=== PATIENT | male | born 1960 | race Caucasian/White ===

== ENCOUNTER 2021-03-21 05:02 | Day surgery (SDC) | payer BC ==
[~2021-03-21] VITALS: Ht 185.4 cm; Wt 89.4 kg
[2021-03-21 06:01] LABS: BASOPHILS % 0.3 % (0.0-1.0); EOSINOPHILS # (AUTO) 0.2 (0.0-0.4); EOSINOPHILS % 3.3 % (0.0-6.0); HEMOGLOBIN 15.8 g/dL (14.0-18.0); LYMPHOCYTES # (AUTO) 1.1 (1.0-3.2); LYMPHOCYTES % 16.9 % (18.0-39.1); MEAN CORPUSCULAR HEMOGLOBIN 29.9 pg (28-32); MEAN CORPUSCULAR HGB CONC 34.3 g/dL (31-35); MONOCYTES # (AUTO) 0.6 (0.2-0.8); MONOCYTES % 8.7 % (4.4-11.3); NEUTROPHILS # (AUTO) 4.4 (2.1-6.9); NEUTROPHILS % 70.6 % (38.7-80.0); PLATELET COUNT 140 x10e3/uL (140-360); RED BLOOD COUNT 5.29 x10e6/uL (4.3-5.7); RED CELL DISTRIBUTION WIDTH 11.9 % (11.7-14.4)
[2021-03-21 06:11] LABS: INR 0.95; PARTIAL THROMBOPLASTIN TIME 24.7 seconds (23.8-35.5); PROTHROMBIN TIME 13.1 seconds (11.9-14.5)
[2021-03-21 06:12] LABS: CLARITY,URINE HAZY (CLEAR); COLOR,URINE YELLOW (YELLOW); KETONES,URINE TRACE (NEGATIVE); LEUKOCYTE ESTERASE ,URINE NEGATIVE (NEGATIVE); NITRITE,URINE NEGATIVE (NEGATIVE); PROTEIN,URINE DIPSTICK TRACE (NEGATIVE); URINE UROBILINOGEN 0.2 mg/dL (0.2 - 1)
[2021-03-21 06:22] LABS: BACTERIA,URINE FEW /HPF; CALCIUM OXALATE CRYSTALS,UR RARE (FEW); EPITHELIAL CELLS,URINE RARE /LPF; RBC,URINE 21-50 /HPF (0-5)
[2021-03-21 06:29] LABS: ALBUMIN 4.3 g/dL (3.5-5.0); ALBUMIN/GLOBULIN RATIO 1.7 (0.8-2.0); CALCIUM 9.7 mg/dL (8.4-10.2); CREATININE, SERUM 1.4 mg/dL (0.72-1.25)
[2021-03-21] MEDS ORDERED: LEVOFLOXACIN 500MG/D5W 100ML IV ONE (07:52)
[2021-03-21 10:15] VITALS: BP 119/82
[2021-03-21] MEDS ORDERED: MIDAZOLAM HCL 2 MG/2 ML VIAL ONE (16:30)
== END 2021-03-21 11:45 | disposition home or self-care (01) ==
LOC: ER 05:38 → ERHOLD 07:08 → UNDOADMOB 07:08 → ER 07:16 → OR 08:39
PROVIDERS: ATTEND Family Medicine
DX: N20.1 Calculus of ureter (principal); N13.30 Unspecified hydronephrosis; N20.0 Calculus of kidney; N17.9 Acute kidney failure, unspecified; R82.81 Pyuria; G40.909 Epilepsy, unspecified, not intractable, without status epilepticus; Z88.0 Allergy status to penicillin; Z01.812 Encounter for preprocedural laboratory examination; Z20.822 Contact with and (suspected) exposure to COVID-19
CPT/HCPCS: 36415; 50590; 80053; 81001; 85025; 85610; 85730; 99284; J1956; J2250; U0002